=== PATIENT | female | born 1950 | race Caucasian/White ===

== ENCOUNTER 2019-09-06 10:34 | Emergency (ER) | payer OTHER, MEDICARE, MEDICAID, SELFPAY ==
--- NOTE | ~2019-09-06 | XR_ITS ---
EXAMINATION: XR chest 2V DATE: 09/06/2019 11:33 INDICATION: Chest pain TECHNIQUE: PA and lateral views of the chest are obtained. COMPARISON: None available FINDINGS: The lungs are free of acute opacities. There is no pleural effusion or pneumothorax. The ca rdiomediastinal silhouette is normal. There is severe thoracic spondylosis. IMPRESSION: 1. No acute cardiopulmonary abnormality. Reviewed, dictated and finalized at location A.
[2019-09-06 10:32] VITALS: PULSE 74; RESP 20; TEMP 36.8; O2SAT 97
--- NOTE | 2019-09-06 10:36 | ECG_ITS ---
Measurements Intervals [place] Rate: 73 P: 66 CO: 175 QRS: 48 QRSD: 102 T: 41 QT: 392 QTc: 433 Interpretive Statements SINUS RHYTHM INCOMPLETE RIGHT BUNDLE BRANCH BLOCK BORDERLINE ECG Electronically Signed On 09-06-2019 11:41:05 CDT by Evgeny Xiong D.O.
--- NOTE | 2019-09-06 10:43 | PC.NURSE ---
BS in room 114
[2019-09-06 10:45] LABS: Glucose Point of Care 114 (65-105)
--- NOTE | 2019-09-06 10:50 | PC.NURSE ---
Pt declines to give u/a or have labs drawn at this time, wishes to go to restroom to clean up. Pt assisted to RR via wc.
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
[2019-09-06 11:25] LABS: Basophils Absolute Auto 0.1 K/mm3 (0.0-0.1); Basophils Percent Auto 1.4 % (0.2-1.2); Eosinophils Absolute Auto 0.1 K/mm3 (0-0.3); Eosinophils Percent Auto 1.3 % (0-4.4); Hematocrit 36.1 % (37.0-47.0); Immature Granulocyte Absolute 0.03 K/mm3 (0.00-0.031); Immature Granulocyte Percent A 0.3 % (0-0.5); Lymphocytes Absolute Auto 1.05 K/mm3 (0.9-3.2); Lymphocytes Percent Auto 10.9 % (18.3-44.2); Mean Corpuscular HGB Conc 33.2 g/dl (32-36); Mean Corpuscular Hemoglobin 31.4 pg (26-34); Mean Corpuscular Volume 94.5 fl (80-100); Mean Platelet Volume 9.6 fl (7.4-10.4); Monocytes Absolute Auto 0.5 K/mm3 (0.1-0.6); Monocytes Percent Auto 5.2 % (2.6-8.5); Neutrophils Absolute Auto 7.8 K/mm3 (1.3-6.7); Neutrophils Percent Auto 80.9 % (45.5-73.1); Platelet Count Result 567 k/mm3 (150-375); Red Blood Count 3.82 M/mm3 (4.2-5.4); Red Cell Distribution Width 12.8 % (11.5-14.5); White Blood Count 9.6 K/mm3 (4.5-10.0)
[2019-09-06 11:29] LABS: Add Urine Microscopic? YES; Appearance Urine Clear (Clear); Bacteria Urine Trace /hpf; Bilirubin Urine Negative (Negative); Blood Urine Negative (Negative); Color Urine Straw (Yellow); Glucose Urine UA Negative (Negative); Ketones Urine Negative (Negative); Leukocyte Esterase Ur Negative LEU/UL (Negative); Nitrate Urine Negative (Negative); Protein Urine Negative (Negative); Specific Grav Ur 1.009 (1.001-1.035); Squamous Epithelial Cell Urine Rare /hpf (Few); Urobilinogen Urine Negative mg/dL (<2.0)
[2019-09-06 11:40] LABS: Prothrombin Time 12.6 Seconds (11.1-14.7)
[2019-09-06 11:41] LABS: Partial Thromboplastin Time 27.1 SECONDS (22.3-36.8)
[2019-09-06 11:43] LABS: Alanine Aminotransferase 34 U/L (4-35); Albumin Level 4.4 g/dL (3.5-5.1); Alkaline Phosphatase 84 U/L (38-126); Aspartate Amino Transferase 43 U/L (14-36); Bilirubin,Total 0.5 mg/dL (0.2-1.3); Blood Urea Nitrogen 25 mg/dL (7-17); Calcium 9.2 mg/dL (8.4-10.2); Carbon Dioxide 24 mmol/L (22-30); Chloride 102 mmol/L (98-107); Estimated CRCL calculation 36 ml/min; Estimated Glomerular Filt Rate 44; Glucose 97 mg/dL (65-105); Potassium 4.4 mmol/L (3.4-5.0); Sodium 135 mmol/L (137-145)
[2019-09-06 11:54] LABS: Troponin I < 0.012 ng/mL (0.000-0.034)
--- NOTE | 2019-09-06 12:18 | PC.NURSE ---
Pt ambulated to RR, pt declined food tray. States I already ate breakfast today and normally I eat at 1300, so I am not hungry. Yaa had fluids and I am ready to go. I feel better...see my sugar? Pt holds up monitor - reads 140. Brad Mosley PA-C made aware.
[2019-09-06 12:24] VITALS: BP 178/45; PULSE 73; RESP 19; O2SAT 100
[2019-09-06 12:51] VITALS: BP 166/97; PULSE 80; RESP 17; O2SAT 99
== END 2019-09-06 12:53 | disposition home or self-care (01) ==
PROVIDERS: Emergency Medicine Emergency Medical Services; Emergency Provider Emergency Medicine; PCP Nurse Practitioner Family
DX: E10.649 Type 1 diabetes mellitus with hypoglycemia without coma (principal); Z79.4 Long term (current) use of insulin; Z96.41 Presence of insulin pump (external) (internal); I45.10 Unspecified right bundle-branch block; V48.5XXA Car driver injured in noncollision transport accident in traffic accident, initial encounter
CPT/HCPCS: 36415; 71046; 80053; 81001; 84484; 85025; 85610; 85730; 93005; 99284